=== PATIENT | female | born 2005 | race Hispanic/Latino ===

== ENCOUNTER 2025-06-17 14:10 | Emergency (ER) | payer SELFPAY ==
[2025-06-17 14:12] VITALS: BP 143/81
--- NOTE | 2025-06-17 15:59 | ED.GENMED ---
History of Present Illness
General
Chief Complaint: Skin Problem
Source: patient
Exam Limitations: none
Time Seen by Provider: 06/17/25 15:22
Nursing documentation reviewed up to this point in time: agreed with
History of Present Illness
History of Present Illness:
19-year-old right-handed female with history of asthma presents for a left thumb laceration. Patient was working in the kitchen and suffered laceration of her left thumb with a knife. Came to the ER for assessment. Unsure of her last tetanus
shot. No other injuries or complaints.
Review of Systems
Review of Systems
All Other Systems: ROS reviewed and negative except as documented in HPI and ROS
Skin: Reports other (Thumb laceration)
Phy Exam
Physical Exam
Physical Exam:
General: Well appearing and non-toxic
HEENT: protecting airway
Neck: appears supple
CV: No evidence of cyanosis
Resp: No accessory muscle use
Abd: Non-distended
Extremities: No deformities
Neuro: Alert
Psych: Normal affect
Skin: Patient has approximately 3 cm sharp linear laceration on the pad of the left thumb�no involvement of the nailbed or subungual hematoma
Scores
Heart Failure Risk
Heart Failure Risk Score: Not Applicable
Heart Score for Chest Pain Patients
STEMI patient?: Not applicable
Withdrawal Assessment of Alcohol
Withdrawal Assessment Completed?: Not applicable
Course
Orders/Labs/Results
Orders:
Orders
06/17/25 15:23
Tetanus/Diphth/Acelpertussis [Adacel] 0.5 ml IM .ONCE ONE
Vital Signs
Initial and Last Documented VS:
Initial Vital Signs
Temp Pulse Resp BP Pulse Ox
37.0 C 79 20 143/81 99
06/17/25 14:12 06/17/25 14:12 06/17/25 14:12 06/17/25 14:12 06/17/25 14:12
Last Documented Vital Signs
Temp Pulse Resp BP Pulse Ox
37.0 C 79 20 143/81 99
06/17/25 14:12 06/17/25 14:12 06/17/25 14:12 06/17/25 14:12 06/17/25 15:59
Procedures
Laceration Closure
Left Thumb:
Status of Wound: clean
Size of Wound in cm: 3
Description of Wound Edges: sharp
Preparation: cleaned with Betadine
Anesthesia: 1% Lidocaine and Digital-Regional
Revision/Debridement: routine- no revision
Type of Closure: single layer closure
Skin Closure Material: 5-0 prolene
Number of sutures: 5
MDM/Problems Addressed
Differential Diagnosis Includes:
Laceration
MDM/Problems Addressed:
19-year-old female presents with thumb laceration. Sharp laceration with a knife. Vigorously irrigated and cleaned with Betadine sponge. Repaired as documented in procedure note. tetanus updated. Stable for discharge. Spoke about follow-up
plan for removal and return precautions. All questions answered.
*Pulse Oximetry
SaO2: 99
Oxygen Mode of Delivery: Room air
Patient hypoxic: no (99%)
*Critical Care Note
Total Time (30-74mins, 75-104mins- exclusive of procedures): Not Applicable
Data Reviewed
Source: patient
ED Attending Note
-
Portions of this chart may have been created with voice recognition software.� Occasional wrong word or��sound alike� substitutions may have occurred due to the inherent limitations of voice recognition software.
Discharge Plan
Departure
Patient Disposition: Home (Routine Discharge)
Date of Disposition: 06/17/25
Time of Disposition: 15:58
Patient with high blood pressure during this ER visit?: Yes
Discharge Problem:
Laceration of thumb
Instructions: Stitches - ED (DC)
Prescriptions:
No Action
prednisone 10 mg Tablet
See Rx Instructions .ROUTE .COMPLEX Qty: 30 0RF
Rx Instructions:
Take By Mouth:
40 mg daily x3 days, 30 mg daily x3 days,
20 mg daily x3 days, 10 mg daily x3 days.
triamcinolone acetonide 0.5 % cream
1 applic topical BID Qty: 15 0RF
Activity Restrictions/Additional Instructions:
You were seen in the emergency room for a left thumb laceration. It was repaired with stitches. Your stitches must be removed in 7 days. You can either return here to the ER, follow-up with your primary doctor, or go to urgent care to have your
stitches removed. If you note any signs of infection please return to the ER immediately to be reassessed.
Thank you for visiting the Emergency Department at [facility].
1. Please schedule a follow up appointment as directed. Call first thing tomorrow morning to make an appointment.
2. If indicated, please take your medications as instructed and indicated on discharge paperwork.
3. If any of your symptoms do not improve, or persist, or become more severe within 6-12 hours, please return to the emergency department for further care.
4. Please return to the emergency department if you develop a headache, neck pain/stiffness, fever greater than 100.4F, chest pain, shortness of breath, persistent nausea, vomiting, slurred speech, difficulty walking, numbness/tingling, weakness,
signs of infection or any other symptoms that are worrisome to you.
Please call [phone] if you have any questions.
Interventions
Interventions:
*General Assessment Last Done: 06/17/25 14:12
Discharge Date and Time
Print Language: MARTINIQUAIS
[2025-06-17] MEDS: ADACEL 0.5 ML IM (16:13)
== END 2025-06-17 16:25 | disposition home or self-care (01) ==
LOC: EMR 14:10
PROVIDERS: EMERGENCY PHYSICIAN Emergency Medicine
DX: S61.012A Laceration without foreign body of left thumb without damage to nail, initial encounter (principal); R03.0 Elevated blood-pressure reading, without diagnosis of hypertension; J45.909 Unspecified asthma, uncomplicated; Z23 Encounter for immunization; W26.0XXA Contact with knife, initial encounter; Y92.000 Kitchen of unspecified non-institutional (private) residence as the place of occurrence of the external cause
CPT/HCPCS: 99282; 12002; 90471; 90715